=== PATIENT | female | born 1995 | race Caucasian/White ===

== ENCOUNTER 2016-09-02 00:30 | Emergency (ER) | payer SELFPAY ==
[2016-09-02 00:39] VITALS: BP 113/79
[2016-09-02] MEDS ORDERED: Albuterol/Ipratropium 3.0-0.5 MG/3 ML Neb Soln NEB ONE (00:46)
[2016-09-02] MEDS ORDERED: methylPREDNISolone Sodium Succinate 125 MG/2 ML SDV IM ONE (00:47)
--- NOTE | 2016-09-02 00:52 | EDM.PDOC ---
ED HISTORY OF PRESENT ILLNESS - General Chief Complaint: Respiratory Problem Stated Complaint: ASMATHA Time Seen by Provider: 09/02/16 00:31 - History of Present Illness INITIAL COMMENTS - FREE TEXT/NARRATIVE: HISTORY AND PHYSICAL: History of present illness: The patient is a 21-year-old female with a history of asthma was not had her inhaler for the last 2 months and presents with asthma symptoms of wheezing. Patient states she recently relocated here in May and has noticed that her breathing has changed she's been here but was having some asthma symptoms before she moved here as well. The patient states the last one week she has had a nonproductive cough but has had sinus congestion and increasing shortness of breath. Patient states she has a history of anxiety and panic attacks and she sometimes wakes up in the night feeling she can't catch her breath which sets off her asthma. Patient denies any fever chills nausea vomiting chest pain or cardiac disease. Patient states in the past she has received prednisone and it has helped along with her rescue inhaler. She has no local provider to get her influenza shot this year. She's been taking fluids well. Patient does state that she smokes cigarettes Patient also states that she felt much worse at home and now but she is here and she feels significantly improved Review of systems: As per history of present illness and below otherwise all systems reviewed and negative. Past medical history: As per history of present illness and as reviewed below otherwise noncontributory. Surgical history: As per history of present illness and as reviewed below otherwise noncontributory. Social history: No reported history of drug or alcohol abuse. Family history: As per history of present illness and as reviewed below otherwise noncontributory. Physical exam: General: Well-developed thin female who is nontoxic and speaking with nasal quality to voice but no breathlessness. Her vital signs up and reviewed by me. HEENT: Atraumatic, normocephalic, negative for conjunctival pallor or scleral icterus, mucous membranes moist, throat clear, neck supple, nontender, trachea midline. Lungs: Inspiratory and expiratory wheezing throughout all charles without any work or breathing or breathlessness breath sounds equal bilaterally, chest nontender. Heart: S1S2, regular rhythm and slightly tachycardic rate of my evaluation, negative for clicks, rubs, or JVD. Abdomen: Soft, nondistended, nontender. NABS. .Genitourinary: Deferred. Rectal: Deferred. Extremities: Atraumatic, negative for cords or calf pain. Neurovascular unremarkable. No pedal edema Neuro: Awake, alert, oriented. Cranial nerves II through XII unremarkable. Cerebellum unremarkable. Motor and sensory unremarkable throughout. Exam nonfocal. Diagnostics: Therapeutics: Duo neb Solu-Medrol Impression: Acute asthma attack, medication refill Definitive disposition and diagnosis as appropriate pending reevaluation and review of above. - Related Data Allergies/ADRs: Allergies Allergy/AdvReac Type Severity Reaction Status Date / Time Penicillins Allergy Itching Verified 09/02/16 00:34 Home Meds: Home Meds Albuterol Sulfate [Proair Hfa] 1 puff IH Q4HR 09/02/16 [History] Past Medical History HEENT History: Reports: None Cardiovascular History: Reports: None Respiratory History: Reports: Asthma Gastrointestinal History: Reports: None Genitourinary History: Reports: None ORTHOTIC/PROSTHETIC CLINICIAN History: Reports: None Musculoskeletal History: Reports: None Neurological History: Reports: None Psychiatric History: Reports: Anxiety, Depression, Suicidal ideation Endocrine/Metabolic History: Reports: None Hematologic History: Reports: None Immunologic History: Reports: None Oncologic (Cancer) History: Reports: None Dermatologic History: Reports: None - Infectious Disease History Infectious Disease History: Reports: None - Past Surgical History HEENT Surgical History: Reports: Tonsillectomy Social & Family History - Family History Family Medical History: Noncontributory - Tobacco Use Smoking Status *Q: Current Every Day Smoker Years of Tobacco use: 5 Packs/Tins Daily: 0.5 - Caffeine Use Caffeine Use: Reports: Soda - Recreational Drug Use Recreational Drug Use: No ED ROS GENERAL - Review of Systems Review Of Systems: ROS reveals no pertinent complaints other than HPI. ED EXAM, GENERAL - Physical Exam Exam: See Below (See dictation) Course - Vital Signs Last Recorded V/S: Last Vital Signs Temp 36.5 C 09/02/16 00:35 Pulse 110 H 09/02/16 00:35 Resp 18 09/02/16 00:35 BP 113/79 09/02/16 00:35 Pulse Ox 96 09/02/16 00:35 - Orders/Labs/Meds Orders: Active Orders 24 hr Category Date Time Status RT Aerosol Therapy [RC] ASDIRECTED Care 09/02/16 00:46 Active Meds: Medications Discontinued Medications Generic Name Dose Route Start Last Admin Trade Name Gm PRN Reason Stop Dose Admin Albuterol/Ipratropium 3 ml 09/02/16 00:46 09/02/16 00:54 Duoneb 3.0-0.5 Mg/3 Ml NEB 09/02/16 00:47 3 ml ONETIME ONE Administration Methylprednisolone Sodium Succinate 125 mg 09/02/16 00:47 09/02/16 00:55 Solu-Medrol IM 09/02/16 00:48 125 mg ONETIME ONE Administration Departure - Departure Time of Disposition: :25 Disposition: Home, Self-Care 01 Condition: good Clinical Impression: Acute asthma Forms: ED Department Discharge Additional Instructions: The following information is given to patients seen in the emergency department who are being discharged to home. This information is to outline your options for follow-up care. We provide all patients seen in our emergency department with a follow-up referral. The need for follow-up, as well as the timing and circumstances, are variable depending upon the specifics of your emergency department visit. If you don't have a primary care physician on staff, we will provide you with a referral. We always advise you to contact your personal physician following an emergency department visit to inform them of the circumstance of the visit and for follow-up with them and/or the need for any referrals to a consulting specialist. The emergency department will also refer you to a specialist when appropriate. This referral assures that you have the opportunity for followup care with a specialist. All of these measure are taken in an effort to provide you with optimal care, which includes your followup. Under all circumstances we always encourage you to contact your private physician who remains a resource for coordinating your care. When calling for followup care, please make the office aware that this follow-up is from your recent emergency room visit. If for any reason you are refused follow-up, please contact the [facility] emergency department at and ask to speak to the emergency department charge nurse. [facility] Primary care- Internal Medicine and Family [address] [address] Please use her inhaler every 6 hours for the next 24 hours and then every 6 hours as needed. Please take prednisone until you are finished. Push fluids and hydration and try to reduce and her stop tobacco use. Please call and followup with one of our clinic physicians in the next few days and return to the ER as needed and as discussed - My Orders Last 24 Hours: My Active Orders 09/02/16 00:46 RT Aerosol Therapy [RC] ASDIRECTED - Assessment/Plan Last 24 Hours: My Active Orders 09/02/16 00:46 RT Aerosol Therapy [RC] ASDIRECTED
== END 2016-09-02 01:24 | disposition home or self-care (01) ==
LOC: MW.ED 00:30
DX: J45.909 Unspecified asthma, uncomplicated (principal); F17.210 Nicotine dependence, cigarettes, uncomplicated; Z88.0 Allergy status to penicillin; Z76.0 Encounter for issue of repeat prescription; Z98.890 Other specified postprocedural states
CPT/HCPCS: 94664; 96372; 99284; J2930